=== PATIENT | male | born 1980 | race Two or more races ===

== ENCOUNTER 2017-10-08 00:31 | Emergency (ER) | payer BC ==
[~2017-10-08] VITALS: Ht 172.7 cm; Wt 74.8 kg
[2017-10-08] MEDS ORDERED: HYDROCODONE/ACETAMINOPHEN 5-32 (00:47)
[2017-10-08] MEDS ORDERED: CEFACLOR (00:47)
[2017-10-08] MEDS ORDERED: METHYLPREDNISOLONE 4 MG (00:47)
[2017-10-08] MEDS ORDERED: ASPIRIN 325 MG TABLET PO ONE (01:30)
[2017-10-08 01:31] LABS: BASOPHILS % (AUTO) 0.3 % (0.0-2.0); EOSINOPHILS # (AUTO) 0.1 K/uL (0.0-0.7); EOSINOPHILS % (AUTO) 0.6 % (0.0-7.0); HEMATOCRIT 39.7 % (36.7-47.1); HEMOGLOBIN 13.7 g/dL (12.5-16.3); LYMPHOCYTES # (AUTO) 2.2 K/uL (20.0-40.0); LYMPHOCYTES % (AUTO) 20.7 % (20.5-51.5); MEAN CORPUSCULAR HEMOGLOBIN 30.5 uug (23.8-33.4); MEAN CORPUSCULAR HGB CONC 35 g/dL (32.5-36.3); MEAN CORPUSCULAR VOLUME 88.4 fL (73.0-96.2); MONOCYTES # (AUTO) 0.7 K/uL (2.0-10.0); MONOCYTES % (AUTO) 6.3 % (0.0-11.0); NEUTROPHILS # (AUTO) 7.6 K/uL (1.8-8.9); NEUTROPHILS % (AUTO) 72.1 % (38.5-71.5); PLATELET COUNT (AUTO) 370 K/uL (152-348); RED BLOOD CELL COUNT(AUTO) 4.49 MIL/uL (4.06-5.63); WHITE BLOOD COUNT (AUTO) 10.6 K/uL (3.6-10.2)
--- NOTE | 2017-10-08 01:40 | NUR ---
Patient asked how long the tests will take to run. Patient stated that he did not want to wait for more than one hour. Education provided regarding repeat blood draw for chest pain protocol, patient stated he would probably not wait and was informed that leaving would be against medical advice. Patient states he will wait.
[2017-10-08] MEDS ORDERED: ASPIRIN 325 MG TABLET ONE (01:43)
[2017-10-08 01:52] LABS: CREATININE 0.9 mg/dL (0.6-1.3); POTASSIUM 3.8 mmol/L (3.5-5.1)
[2017-10-08 02:05] LABS: BILIRUBIN,DIRECT 0.1 mg/dL (0.0-0.2); BILIRUBIN,TOTAL 0.5 mg/dL (0.2-1.0); TOTAL PROTEIN, SERUM 6.9 g/dL (6.4-8.2)
[2017-10-08] MEDS ORDERED: LORAZEPAM 2 MG/1 ML VIAL IV ONE (03:00)
--- NOTE | 2017-10-08 03:00 | NUR ---
Patient requesting to leave, states that he does not want to wait for the tests and that he would like to wait in the waiting area for his girlfriend to arrive. Education provided regarding cardiac monitoring and repeat blood test. ERMD notified who spoke with patient about importance of completing medical advice. Patient stated he would wait. ERMD spoke to patient about medication to aid with anxiety, orders received.
[2017-10-08] MEDS ORDERED: LORAZEPAM 2 MG/1 ML VIAL ONE (03:05)
--- NOTE | 2017-10-08 03:55 | NUR ---
Patient's girlfriend arrived. With patient's permission, education was provided regarding cardiac monitoring, test results that have been completed, and medical advice for repeat blood test. Patient, and his girlfriend, ok with staying for repeat blood test.
--- NOTE | 2017-10-08 04:28 | NUR ---
Patient stated he did not want to wait in the room any longer. 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 Education provided regarding the importance of cardiac monitoring, the patient was still exhibiting tachycardia, to which the patient stated he would wait for the blood test but did not want to remain in the room or on the materials research engineer. 18GA IV removed from RIGHT AC. Catheter intact and site benign. Pressure and 4x4 gauze applied to site. No bleeding noted. Patient walked to waiting room with his girlfriend.
--- NOTE | 2017-10-08 05:33 | NUR ---
Patient discharged to home in stable conditon. Written and verbal after care instructions given. Patient verbalizes understanding of instructions.
== END 2017-10-08 05:35 | disposition home or self-care (01) ==
LOC: ER 00:34
DX: R07.9 Chest pain, unspecified (principal); F15.10 Other stimulant abuse, uncomplicated
CPT/HCPCS: 36415; 70030-TC; 71010; 85025; 85730; 93005; A4663; J2060